=== PATIENT | male | born 1980 | race Caucasian/White ===

== ENCOUNTER 2022-03-04 15:17 | Inpatient (IN) | payer OTHER, SELFPAY ==
[2022-03-04] VITALS (15 sets, daily range): BP systolic 74–99; BP diastolic 48–67
[~2022-03-04] VITALS: Ht 185.4 cm; Wt 112.9 kg
[2022-03-04] MEDS ORDERED: NS 1,000 ML IV ONE (15:35)
[2022-03-04] MEDS ORDERED: KETAMINE HCL 200MG/20ML VIAL As Ordered ONE (16:00)
[2022-03-04] MEDS ORDERED: LIDOCAINE W/EPINEPHRINE 1% 20ML VIAL As Ordered ONE (16:05)
[2022-03-04 16:06] LABS: BASO # 0.1 10^3/uL (0.0-0.2); BASO % 0.3 % (0.0-1.0); EOS # 0.1 10^3/uL (0.0-0.5); EOS % 0.3 % (0.0-3.0); HEMATOCRIT 38.1 % (42.0-52.0); LYMPH # 3.6 10^3/uL (1.5-5.0); LYMPH % 13.1 % (24.0-44.0); MEAN CORPUSCULAR HEMOGLOBIN 31.4 pg (27.0-33.0); MEAN CORPUSCULAR HGB CONC 31.5 g/dl (32.0-36.5); MEAN CORPUSCULAR VOLUME 99.7 fl (80.0-96.0); MONO # 1.2 10^3/uL (0.0-0.8); MONO % 4.5 % (2.0-8.0); NEUTROPHILS # 21.5 10^3/uL (1.5-8.5); NEUTROPHILS % 78.5 % (36.0-66.0); PLATELET COUNT, AUTOMATED 248 10^3/uL (150-450); RED BLOOD COUNT 3.82 10^6/uL (4.30-6.10); WHITE BLOOD COUNT 27.4 10^3/uL (4.0-10.0)
[2022-03-04] MEDS ORDERED: HOME MED LIST COMPLETE! XX SCH (16:15)
[2022-03-04] MEDS ORDERED: VASOPRESSIN INJ 20UNITS/ML 1ML VIAL As Ordered ONE (16:16)
[2022-03-04 16:17] LABS: INR 1.33; PROTHROMBIN TIME 16.7 SECONDS (12.5-14.5)
[2022-03-04 16:18] LABS: PARTIAL THROMBOPLASTIN TIME 29.2 SECONDS (24.8-34.2)
[2022-03-04] MEDS ORDERED: ROCURONIUM BROMIDE 50 MG/5 ML VIAL As Ordered ONE (16:21)
[2022-03-04] MEDS ORDERED: SUCCINYLCHOLINE 100 MG/5 ML SYRINGE (J0330) As Ordered ONE (16:21)
[2022-03-04] MEDS ORDERED: LIDOCAINE 2% 100MG/5ML SDV (FOR ANES.) As Ordered ONE (16:21)
[2022-03-04] MEDS ORDERED: propofoL 200 MG/20 ML VIAL As Ordered ONE (16:21)
[2022-03-04] MEDS ORDERED: MIDAZOLAM INJ 2MG/2ML VIAL (J2250 PER 1MG) As Ordered ONE ×2 (16:21→18:30)
[2022-03-04] MEDS ORDERED: fentaNYL 100 MCG/2 ML INJECTION As Ordered ONE (16:21)
[2022-03-04] MEDS ORDERED: ceFAZolin 2 GM/D5W 50 ML IV BAG As Ordered ONE (16:28)
[2022-03-04] MEDS ORDERED: PHENYLephrine 500MCG 5ML (100MCG/ML) SYRINGE As Ordered ONE (16:33)
[2022-03-04 16:34] LABS: CK-MB VALUE MASS 2.8 NG/ML (<3.6); ETHYL ALCOHOL (ETHANOL) 0.009 % (0.000-0.010)
[2022-03-04 16:35] LABS: BILIRUBIN,DIRECT 0.3 MG/DL (<0.4)
[2022-03-04 16:36] LABS: ALBUMIN 2.9 G/DL (3.2-5.2); CALCIUM LEVEL 8.2 MG/DL (8.5-10.1); CREATININE FOR GFR 1.56 MG/DL (0.70-1.30); GLOMERULAR FILTRATION RATE 52.5 (>60); MB/CK RELATIVE INDEX 1.56 (< OR =4); POTASSIUM SERUM 4.1 MMOL/L (3.5-5.1); TOTAL PROTEIN 5.6 G/DL (5.7-8.2)
[2022-03-04] MEDS ORDERED: PROPOFOL 1,000 MG/100 ML VIAL As Ordered ONE (16:40)
[2022-03-04] MEDS ORDERED: BACITRACIN OINTMENT 30GM TUBE As Ordered ONE (17:01)
[2022-03-04] MEDS ORDERED: MIDAZOLAM INJ 2MG/2ML VIAL (J2250 PER 1MG) IV PRN (17:55)
[2022-03-04] MEDS ORDERED: MORPHINE 2 MG/ML 1ML VIAL As Ordered ONE (18:30)
[2022-03-04] MEDS ORDERED: MORPHINE 2 MG/ML 1ML VIAL IV PRN (18:30)
[2022-03-04] MEDS: propofoL 1,000 MG in IV 1 EA IV SCH ×3 (18:36→22:33)
[2022-03-04 19:11] LABS: HEMATOCRIT 43.7 % (42.0-52.0); MEAN CORPUSCULAR HEMOGLOBIN 31.5 pg (27.0-33.0); MEAN CORPUSCULAR VOLUME 95.6 fl (80.0-96.0); PLATELET COUNT, AUTOMATED 159 10^3/uL (150-450); RED BLOOD COUNT 4.57 10^6/uL (4.30-6.10); WHITE BLOOD COUNT 18.4 10^3/uL (4.0-10.0)
[2022-03-04 19:17] LABS: HEMOGLOBIN 14.4 g/dl (13.5-17.5)
[2022-03-04] MEDS ORDERED: COMBIVENT RESPIMAT 100-20MCG INHALER 4GM INH SCH (20:00)
[2022-03-04] MEDS: PANTOPRAZOLE 40MG VIAL IV SCH (20:23)
[2022-03-04] MEDS: CHLORHEXIDINE GLUCONATE 0.12 % 15ML UDC (PERIDEX ORAL RINSE) MT SCH (20:23)
[2022-03-04] MEDS: LR 1,000 ML IV SCH (20:24)
[2022-03-04] MEDS: IPRATROPIUM 0.5MG/ALBUTEROL 2.5MG INH SOL UD 3ML (DUONEB) NEB SCH (20:28)
[2022-03-04] MEDS ORDERED: MIDAZOLAM 100MG/100ML-0.9%NACL 100 MG in IV 1 EA IV SCH (21:45)
[2022-03-04 21:46] LABS: INR 1.17; PROTHROMBIN TIME 15.1 SECONDS (12.5-14.5)
[2022-03-04 21:47] LABS: PARTIAL THROMBOPLASTIN TIME 28.5 SECONDS (24.8-34.2)
[2022-03-04 21:59] LABS: LDH LACTATE DEHYDROGENASE 256 U/L (120-246)
[2022-03-04 22:11] LABS: ALBUMIN 2.7 G/DL (3.2-5.2); ALKALINE PHOSPHATASE 76 U/L (46-116); ALT/SGPT 21 U/L (7.0-40); AST/SGOT 25 U/L (<34); BILIRUBIN,TOTAL 0.6 MG/DL (0.3-1.2); BLOOD UREA NITROGEN 14 MG/DL (9-23); CALCIUM LEVEL 7.4 MG/DL (8.5-10.1); CARBON DIOXIDE LEVEL 25 MMOL/L (20-31); CHLORIDE LEVEL 107 MMOL/L (98-107); CHOLESTEROL LEVEL 112 MG/DL (<200); CPK CREATINE PHOSPHOKINASE 393 U/L (46-171); CREATININE FOR GFR 1.16 MG/DL (0.70-1.30); GLOMERULAR FILTRATION RATE > 60.0 (>60); GLUCOSE, FASTING 108 MG/DL (60-100); PHOSPHORUS LEVEL 2.4 MG/DL (2.5-4.9); POTASSIUM SERUM 5.3 MMOL/L (3.5-5.1); SODIUM LEVEL 140 MMOL/L (136-145); TOTAL PROTEIN 5.1 G/DL (5.7-8.2); TRIGLYCERIDES LEVEL 194 MG/DL (<150)
[2022-03-04 23:07] LABS: ABG BASE EXCESS -1.5 (-2.0-2.0); ABG HCO3 23.3 MEQ/L (22.0-26.0); ABG O2 SATURATION 99.1 % (95.0-99.0); ABG PARTIAL PRESSURE CO2 39.9 mmHg (35.0-45.0); ABG PARTIAL PRESSURE O2 230.3 mmHg (75.0-100.0); ABG STANDARD HCO3 23.2 MEQ/L (22.0-26.0); ABG TOTAL CO2 24.6 MEQ/L (22.0-29.0); ABG pH (ARTERIAL) 7.385 UNITS (7.350-7.450)
[2022-03-04] MEDS: AMPICILLIN SOD/SULBACTAM SOD 3 GM in D5W MINI-BAG PLUS 100 ML IV SCH (23:10)
[2022-03-05] VITALS (23 sets, daily range): BP systolic 93–144; BP diastolic 55–82
[2022-03-05 00:40] LABS: APPEARANCE, URINE MANUAL CLEAR (CLEAR); COLOR, URINE MANUAL YELLOW (YELLOW)
[2022-03-05 00:41] LABS: BILIRUBIN, URINE MANUAL NEGATIVE (NEGATIVE); BLOOD URINE MANUAL NEGATIVE (NEGATIVE); GLUCOSE, URINE (UA) MANUAL NEGATIVE (NEGATIVE); KETONE, URINE MANUAL NEGATIVE (NEGATIVE); LEUKOCYTE ESTERASE, URINE MAN NEGATIVE (NEGATIVE); NITRITE, URINE MANUAL NEGATIVE (NEGATIVE); PROTEIN, URINE MANUAL NEGATIVE (NEGATIVE); UROBILINOGEN, URINE MANUAL NORMAL (NORMAL)
[2022-03-05] MEDS: LR 1,000 ML IV SCH (00:51)
[2022-03-05 01:04] LABS: AMPHETAMINES LEVEL URINE NEGATIVE (NEGATIVE); BARBITURATES URINE NEGATIVE (NEGATIVE); CANNABINOIDS URINE NEGATIVE (NEGATIVE); COCAINE METABOLITE URINE NEGATIVE (NEGATIVE); METHADONE URINE NEGATIVE (NEGATIVE); PHENCYCLIDINE URINE NEGATIVE (NEGATIVE)
[2022-03-05 01:08] LABS: BENZODIAZEPINES URINE POSITIVE (NEGATIVE); OPIATES URINE POSITIVE (NEGATIVE)
[2022-03-05] MEDS ORDERED: ACETAMINOPHEN 1000MG 100ML IV BAG IV ONE ×2 (03:55→16:05)
[2022-03-05] MEDS: propofoL 1,000 MG in IV 1 EA IV SCH (04:12)
[2022-03-05] MEDS: AMPICILLIN SOD/SULBACTAM SOD 3 GM in D5W MINI-BAG PLUS 100 ML IV SCH ×4 (04:30→22:05)
[2022-03-05 05:54] LABS: ABG O2 SATURATION 98.7 % (95.0-99.0); ABG PARTIAL PRESSURE CO2 37.5 mmHg (35.0-45.0); ABG STANDARD HCO3 25.4 MEQ/L (22.0-26.0); ABG TOTAL CO2 26.2 MEQ/L (22.0-29.0); ABG pH (ARTERIAL) 7.442 UNITS (7.350-7.450)
[2022-03-05 05:58] LABS: MEAN CORPUSCULAR HEMOGLOBIN 31.3 pg (27.0-33.0); PLATELET COUNT, AUTOMATED 137 10^3/uL (150-450); RED BLOOD COUNT 3.26 10^6/uL (4.30-6.10); WHITE BLOOD COUNT 9.5 10^3/uL (4.0-10.0)
[2022-03-05 06:05] LABS: HEMOGLOBIN 10.2 g/dl (13.5-17.5)
[2022-03-05 06:30] LABS: ALBUMIN 2.3 G/DL (3.2-5.2); BLOOD UREA NITROGEN 13 MG/DL (9-23); CALCIUM LEVEL 6.9 MG/DL (8.5-10.1); CARBON DIOXIDE LEVEL 24 MMOL/L (20-31); CHLORIDE LEVEL 106 MMOL/L (98-107); CREATININE FOR GFR 1.23 MG/DL (0.70-1.30); GLOMERULAR FILTRATION RATE > 60.0 (>60); GLUCOSE, FASTING 121 MG/DL (60-100); PHOSPHORUS LEVEL 3.9 MG/DL (2.5-4.9); POTASSIUM SERUM 4.4 MMOL/L (3.5-5.1); SODIUM LEVEL 140 MMOL/L (136-145)
[2022-03-05] MEDS: IPRATROPIUM 0.5MG/ALBUTEROL 2.5MG INH SOL UD 3ML (DUONEB) NEB SCH (07:19)
[2022-03-05] MEDS ORDERED: NEOSPORIN OINT 0.9 GM PKT TOP STA (08:39)
[2022-03-05] MEDS: CHLORHEXIDINE GLUCONATE 0.12 % 15ML UDC (PERIDEX ORAL RINSE) MT SCH (08:44)
[2022-03-05] MEDS: PANTOPRAZOLE 40MG VIAL IV SCH (08:44)
[2022-03-05] MEDS ORDERED: ENOXAPARIN 40MG/0.4ML SYRINGE (J1650 PER 10MG) SC SCH (09:00)
[2022-03-05] MEDS ORDERED: MORPHINE 2 MG/ML 1ML VIAL IV PRN (09:00)
[2022-03-05] MEDS ORDERED: PERCOCET 5MG/325MG TAB PO PRN (09:00)
[2022-03-05] MEDS ORDERED: NEOSPORIN OINT 0.9 GM PKT TOP ONE (12:00)
[2022-03-05] MEDS ORDERED: IBUPROFEN 200MG TAB PO PRN (15:55)
[2022-03-05] MEDS ORDERED: ACETAMINOPHEN 1000MG 100ML IV BAG IV PRN (16:05)
[2022-03-05] MEDS ORDERED: IBUPROFEN 400MG TAB PO PRN (16:15)
[2022-03-06] VITALS (7 sets, daily range): BP systolic 111–147; BP diastolic 63–83
[2022-03-06] MEDS: AMPICILLIN SOD/SULBACTAM SOD 3 GM in D5W MINI-BAG PLUS 100 ML IV SCH ×4 (04:18→22:58)
[2022-03-06 07:03] LABS: HEMOGLOBIN 8.7 g/dl (13.5-17.5); MEAN CORPUSCULAR HEMOGLOBIN 31.3 pg (27.0-33.0); MEAN CORPUSCULAR HGB CONC 33.5 g/dl (32.0-36.5); MEAN CORPUSCULAR VOLUME 93.5 fl (80.0-96.0); PLATELET COUNT, AUTOMATED 134 10^3/uL (150-450); RED BLOOD COUNT 2.78 10^6/uL (4.30-6.10); WHITE BLOOD COUNT 8.3 10^3/uL (4.0-10.0)
[2022-03-06 07:30] LABS: ALBUMIN 2.4 G/DL (3.2-5.2); BLOOD UREA NITROGEN 8 MG/DL (9-23); CALCIUM LEVEL 7.4 MG/DL (8.5-10.1); CARBON DIOXIDE LEVEL 31 MMOL/L (20-31); CHLORIDE LEVEL 104 MMOL/L (98-107); CREATININE FOR GFR 1.14 MG/DL (0.70-1.30); GLOMERULAR FILTRATION RATE > 60.0 (>60); GLUCOSE, FASTING 97 MG/DL (60-100); PHOSPHORUS LEVEL 2.2 MG/DL (2.5-4.9); POTASSIUM SERUM 3.7 MMOL/L (3.5-5.1); SODIUM LEVEL 140 MMOL/L (136-145)
[2022-03-06 07:59] LABS: MAGNESIUM LEVEL 1.7 MG/DL (1.8-2.4)
[2022-03-06] MEDS: PANTOPRAZOLE 40MG VIAL IV SCH (09:01)
[2022-03-06] MEDS: NICOTINE 14 MG/24 HR TRANSDERMAL TD SCH (13:22)
[2022-03-06] MEDS: BACITRACIN OINTMENT 30GM TUBE TOP PRN (15:23)
[2022-03-06] MEDS: RIVAROXABAN 10MG TAB (XARELTO) PO SCH (17:03)
[2022-03-06] MEDS: MAGNESIUM OXIDE 400MG TAB (MAG-OX) PO SCH (21:56)
[2022-03-07] VITALS (7 sets, daily range): BP systolic 108–153; BP diastolic 59–84
[2022-03-07] MEDS: AMPICILLIN SOD/SULBACTAM SOD 3 GM in D5W MINI-BAG PLUS 100 ML IV SCH ×4 (05:06→23:12)
[2022-03-07 05:46] LABS: HEMOGLOBIN 8.4 g/dl (13.5-17.5); MEAN CORPUSCULAR HEMOGLOBIN 31.3 pg (27.0-33.0); MEAN CORPUSCULAR HGB CONC 33.6 g/dl (32.0-36.5); MEAN CORPUSCULAR VOLUME 93.3 fl (80.0-96.0); PLATELET COUNT, AUTOMATED 150 10^3/uL (150-450); RED BLOOD COUNT 2.68 10^6/uL (4.30-6.10); WHITE BLOOD COUNT 5.8 10^3/uL (4.0-10.0)
[2022-03-07 06:30] LABS: ALBUMIN 2.5 G/DL (3.2-5.2); BLOOD UREA NITROGEN 6 MG/DL (9-23); CALCIUM LEVEL 7.4 MG/DL (8.5-10.1); CARBON DIOXIDE LEVEL 26 MMOL/L (20-31); CHLORIDE LEVEL 107 MMOL/L (98-107); CREATININE FOR GFR 0.98 MG/DL (0.70-1.30); GLOMERULAR FILTRATION RATE > 60.0 (>60); GLUCOSE, FASTING 108 MG/DL (60-100); POTASSIUM SERUM 3.9 MMOL/L (3.5-5.1); SODIUM LEVEL 143 MMOL/L (136-145)
[2022-03-07 08:09] LABS: MAGNESIUM LEVEL 1.7 MG/DL (1.8-2.4)
[2022-03-07] MEDS ORDERED: HOME MED LIST COMPLETE! XX SCH (09:25)
[2022-03-07] MEDS: PANTOPRAZOLE 40MG VIAL IV SCH (09:35)
[2022-03-07] MEDS: NICOTINE 14 MG/24 HR TRANSDERMAL TD SCH (09:35)
[2022-03-07] MEDS: MAGNESIUM OXIDE 400MG TAB (MAG-OX) PO SCH ×2 (09:36→20:51)
[2022-03-07] MEDS: RIVAROXABAN 10MG TAB (XARELTO) PO SCH (18:03)
[2022-03-08 03:47] VITALS: BP 121/64
[2022-03-08] MEDS: AMPICILLIN SOD/SULBACTAM SOD 3 GM in D5W MINI-BAG PLUS 100 ML IV SCH ×2 (04:47→11:23)
[2022-03-08 05:25] LABS: HEMATOCRIT 26.1 % (42.0-52.0); HEMOGLOBIN 8.6 g/dl (13.5-17.5); MEAN CORPUSCULAR HEMOGLOBIN 31.3 pg (27.0-33.0); MEAN CORPUSCULAR VOLUME 94.9 fl (80.0-96.0); PLATELET COUNT, AUTOMATED 187 10^3/uL (150-450); RED BLOOD COUNT 2.75 10^6/uL (4.30-6.10); WHITE BLOOD COUNT 4.9 10^3/uL (4.0-10.0)
[2022-03-08 06:06] LABS: ALBUMIN 2.5 G/DL (3.2-5.2); BLOOD UREA NITROGEN 7 MG/DL (9-23); CALCIUM LEVEL 7.7 MG/DL (8.5-10.1); CARBON DIOXIDE LEVEL 29 MMOL/L (20-31); CHLORIDE LEVEL 106 MMOL/L (98-107); CREATININE FOR GFR 1.01 MG/DL (0.70-1.30); GLOMERULAR FILTRATION RATE > 60.0 (>60); GLUCOSE, FASTING 104 MG/DL (60-100); POTASSIUM SERUM 3.7 MMOL/L (3.5-5.1); SODIUM LEVEL 143 MMOL/L (136-145)
[2022-03-08 08:00] VITALS: BP 133/77
[2022-03-08] MEDS: PANTOPRAZOLE 40MG VIAL IV SCH (09:16)
[2022-03-08] MEDS: NICOTINE 14 MG/24 HR TRANSDERMAL TD SCH (09:16)
[2022-03-08] MEDS ORDERED: AUGM500T34 PO (10:07)
[2022-03-08] MEDS ORDERED: NICO14PA TD (10:07)
[2022-03-08 12:00] VITALS: BP 131/76
[2022-03-08] MEDS ORDERED: AUGMENTIN 500MG TAB PO ONE (14:00)
[2022-03-08 16:00] VITALS: BP 123/74
[2022-03-08] MEDS: BACITRACIN OINTMENT 30GM TUBE TOP PRN (17:00)
[2022-03-08] MEDS: RIVAROXABAN 10MG TAB (XARELTO) PO SCH (17:33)
[2022-03-08 17:45] VITALS: BP 132/78
== END 2022-03-08 18:13 | DRG 911 ==
LOC: M ED 15:17 → EDAGE 15:17 → M ED INP 17:54 → M ICU 19:26 → M PCU 03-06 05:09
PROVIDERS: ADMIT Surgery; ATTEND Internal Medicine
PROC: 5A1935Z Respiratory Ventilation, Less than 24 Consecutive Hours (ICD-10-PCS; 2022-03-04)
PROC: 0KQB0ZZ Repair Left Lower Arm and Wrist Muscle, Open Approach (ICD-10-PCS; 2022-03-04)
PROC: 0KQ90ZZ Repair Right Lower Arm and Wrist Muscle, Open Approach (ICD-10-PCS; 2022-03-04)
PROC: 30233N1 Transfusion of Nonautologous Red Blood Cells into Peripheral Vein, Percutaneous Approach (ICD-10-PCS; 2022-03-04)
PROC: 0BQ10ZZ Repair Trachea, Open Approach (ICD-10-PCS; principal; 2022-03-04 16:21)
DX: T14.91XA Suicide attempt, initial encounter (principal); J96.90 Respiratory failure, unspecified, unspecified whether with hypoxia or hypercapnia; T68.XXXA Hypothermia, initial encounter; F33.2 Major depressive disorder, recurrent severe without psychotic features; D69.6 Thrombocytopenia, unspecified; D64.9 Anemia, unspecified; R58 Hemorrhage, not elsewhere classified; S51.811A Laceration without foreign body of right forearm, initial encounter; S51.812A Laceration without foreign body of left forearm, initial encounter; F17.200 Nicotine dependence, unspecified, uncomplicated; X78.9XXA Intentional self-harm by unspecified sharp object, initial encounter; Y92.009 Unspecified place in unspecified non-institutional (private) residence as the place of occurrence of the external cause; S11.021A Laceration without foreign body of trachea, initial encounter; S15 Injury of blood vessels at neck level

== ENCOUNTER 2022-03-08 14:14 | Inpatient (IN) | payer MEDICAID, OTHER ==
[~2022-03-08] VITALS: Ht 185.4 cm; Wt 112.9 kg
[~2022-03-08 14:14] MED LIST: AUGM500T34 PO; NICO14PA TD
[2022-03-08] MEDS ORDERED: OLANZapine ORAL DISINTEGRATING TAB 5MG PO PRN (15:45)
[2022-03-08] MEDS ORDERED: traZODone 50 MG TAB PO PRN (15:45)
[2022-03-08] MEDS ORDERED: ACETAMINOPHEN TAB 650MG DOSE (2X325MG) PO PRN (15:45)
[2022-03-08] MEDS ORDERED: MOM 30ML SUSPENSION UDC PO PRN (15:45)
[2022-03-08] MEDS ORDERED: MAALOX 30 ML SUSP *UDC PO PRN (15:45)
[2022-03-08] MEDS ORDERED: HOME MED LIST COMPLETE! XX SCH (18:35)
[2022-03-09 06:40] VITALS: BP 126/70
[2022-03-09] MEDS: PANTOPRAZOLE 40MG TAB (PROTONIX) PO SCH (07:35)
[2022-03-09] MEDS: SERTRALINE HCL 50 MG TAB PO SCH (07:37)
[2022-03-09] MEDS ORDERED: NICOTINE 14 MG/24 HR TRANSDERMAL TD PRN (08:00)
[2022-03-09] MEDS: AUGMENTIN 875 MG TAB PO SCH ×2 (11:09→21:03)
[2022-03-09] MEDS: BACITRACIN OINTMENT 30GM TUBE TOP SCH (11:09)
[2022-03-09 18:08] VITALS: BP 126/67
[2022-03-10 06:30] VITALS: BP 117/70
[2022-03-10] MEDS: SERTRALINE HCL 50 MG TAB PO SCH (09:00)
[2022-03-10] MEDS: BACITRACIN OINTMENT 30GM TUBE TOP SCH (10:04)
[2022-03-10] MEDS: PANTOPRAZOLE 40MG TAB (PROTONIX) PO SCH (10:04)
[2022-03-10] MEDS: AUGMENTIN 875 MG TAB PO SCH ×2 (10:04→20:51)
[2022-03-10 15:06] VITALS: BP 125/84
[2022-03-11 06:26] VITALS: BP 146/77
[2022-03-11] MEDS: PANTOPRAZOLE 40MG TAB (PROTONIX) PO SCH (08:45)
[2022-03-11] MEDS: BACITRACIN OINTMENT 30GM TUBE TOP SCH (08:45)
[2022-03-11] MEDS: AUGMENTIN 875 MG TAB PO SCH ×2 (08:45→20:17)
[2022-03-11] MEDS: SERTRALINE HCL 50 MG TAB PO SCH (08:46)
[2022-03-11 19:50] VITALS: BP 158/79
[2022-03-11] MEDS: MIRTAZAPINE 15 MG TAB PO SCH (20:17)
[2022-03-12 06:26] VITALS: BP 130/81
[2022-03-12 08:02] LABS: CHOLESTEROL RISK RATIO 4.58 (<5); LDL CHOLESTEROL 93.2 MG/DL (<100)
[2022-03-12] MEDS: PANTOPRAZOLE 40MG TAB (PROTONIX) PO SCH (08:14)
[2022-03-12] MEDS: AUGMENTIN 875 MG TAB PO SCH ×2 (08:14→21:49)
[2022-03-12] MEDS: BACITRACIN OINTMENT 30GM TUBE TOP SCH (08:33)
[2022-03-12 18:30] VITALS: BP 146/77
[2022-03-12] MEDS: MIRTAZAPINE 15 MG TAB PO SCH (21:49)
[2022-03-13 06:38] VITALS: BP 117/71
[2022-03-13] MEDS: PANTOPRAZOLE 40MG TAB (PROTONIX) PO SCH (08:06)
[2022-03-13] MEDS: AUGMENTIN 875 MG TAB PO SCH ×2 (08:06→21:34)
[2022-03-13] MEDS: BACITRACIN OINTMENT 30GM TUBE TOP SCH (08:07)
[2022-03-13 18:03] VITALS: BP 136/77
[2022-03-13] MEDS: MIRTAZAPINE 15 MG TAB PO SCH (21:34)
[2022-03-14 06:43] VITALS: BP 158/74
[2022-03-14] MEDS: PANTOPRAZOLE 40MG TAB (PROTONIX) PO SCH (08:49)
[2022-03-14] MEDS: BACITRACIN OINTMENT 30GM TUBE TOP SCH (08:49)
[2022-03-14] MEDS ORDERED: MIRT-10 PO (10:01)
[2022-03-14] MEDS ORDERED: BACI50OI TOP (10:01)
[2022-03-14] MEDS ORDERED: PANT40TA29 PO (10:01)
== END 2022-03-14 12:32 | disposition home or self-care (01) | DRG 754 ==
LOC: M PSY 18:26
PROVIDERS: ADMIT Student in an Organized Health Care Education/Training Program; ATTEND Psychiatry & Neurology Psychiatry
DX: F34.1 Dysthymic disorder (principal); F32.9 Major depressive disorder, single episode, unspecified; Z91.51 Personal history of suicidal behavior; Z81.1 Family history of alcohol abuse and dependence; Z88.0 Allergy status to penicillin; Z79.1 Long term (current) use of non-steroidal anti-inflammatories (NSAID); S11.02 Open wound of trachea; F19.10 Other psychoactive substance abuse, uncomplicated; S51.812D Laceration without foreign body of left forearm, subsequent encounter; S51.811D Laceration without foreign body of right forearm, subsequent encounter